=== PATIENT | male | born 1985 | race Caucasian/White ===

== ENCOUNTER 2025-03-31 22:35 | Emergency (ER) | payer OTHER ==
[2025-03-31 22:41] VITALS: RESP 20; BMI 23.6
[2025-03-31] MEDS ORDERED: levETIRAcetam 500 MG/5 ML INJECTION VIAL IVPB ONE (22:55)
[2025-03-31] MEDS: levETIRAcetam 500 MG/5 ML INJECTION VIAL IVPB ONE (23:12)
[2025-03-31 23:17] LABS: ABSOLUTE IMMATURE GRANULOCYTES 0.03 x10^3/uL (0.0-0.031); BASOPHILS # 0.06 x10^3/uL (0.01-0.08); EOSINOPHIL % 0.2 % (0.8-7.0); EOSINOPHILS # 0.02 x10^3/uL (0.04-0.54); MCHC 33.2 g/dl (32.3-36.5); MEAN CELL VOLUME 85.2 fl (79.0-92.2); MEAN PLT VOLUME 9.7 fl (9.4-12.4); MONOCYTE # 0.57 x10^3/uL (0.30-0.82); MONOCYTE % 4.4 % (5.3-12.2); RDW 12.5 % (12.0-15.6)
[2025-03-31 23:37] LABS: GLUCOSE,RANDOM 159 mg/dL (74-106); TOT PROT 8.8 g/dl (6.4-8.2)
[2025-03-31 23:38] LABS: CO2 26 mmol/L (21-32)
[2025-03-31 23:40] LABS: ALK PHOS 72 U/L (40-150)
[2025-03-31 23:42] LABS: LACTIC ACID 3.0 mmol/L (0.4-2.0)
[2025-03-31 23:43] LABS: CREATININE 1.09 mg/dL (0.55-1.3); SGOT/AST 21 U/L (5-34); SGPT/ALT 10 U/L (0-55)
[2025-03-31] MEDS ORDERED: ACETAMINOPHEN INJECTION 100 ML ONE (23:57)
[2025-04-01] MEDS: ACETAMINOPHEN 1000 MG/100 ML BAG IVPB ONE (00:05)
[2025-04-01 00:11] LABS: HCV DIAGNOSTIC IN-HOUSE W/RFLX NON-REACTIVE (NONREACTIVE)
[2025-04-01] MEDS: SODIUM CHLORIDE 1,000 ML IV STA (00:11)
[2025-04-01 00:12] LABS: HIV INTERPRETATION NEGATIVE (NEGATIVE)
[2025-04-01 00:44] LABS: URINE APPEARANCE CLEAR; URINE BILIRUBIN NEGATIVE (NEGATIVE); URINE COLOR YELLOW; URINE GLUCOSE (UA) NEGATIVE (NEGATIVE); URINE KETONE TRACE (NEGATIVE); URINE LEUK ESTERASE NEGATIVE (NEGATIVE); URINE NITRITE NEGATIVE (NEGATIVE); URINE PROTEIN TRACE (NEGATIVE); URINE UROBILINOGEN 1.0 mg/dL (0.2-1.0)
[2025-04-01 00:54] LABS: COCAINE, UR POSITIVE (NEGATIVE); PHENCYCLIDINE,URINE NEGATIVE (NEGATIVE)
[2025-04-01 00:55] LABS: METHADONE, UR NEGATIVE (NEGATIVE); OPIATES, URI POSITIVE (NEGATIVE); URINE AMPHETAMINES NEGATIVE (NEGATIVE); URINE BARBITURATES NEGATIVE (NEGATIVE); URINE BENZODIAZEPINES NEGATIVE (NEGATIVE)
[2025-04-01 02:49] VITALS: BP 114/64; PULSE 87; TEMP 97.9
== END 2025-04-01 03:27 | disposition home or self-care (01) ==
LOC: JER 22:35
PROC: 0HQ1XZZ Repair Face Skin, External Approach (ICD-10-PCS; principal; 2025-03-31)
PROC: 3E033GC Introduction of Other Therapeutic Substance into Peripheral Vein, Percutaneous Approach (ICD-10-PCS; 2025-03-31)
PROC: 3E033GC Introduction of Other Therapeutic Substance into Peripheral Vein, Percutaneous Approach (ICD-10-PCS; 2025-03-31)
PROC: 3E033NZ Introduction of Analgesics, Hypnotics, Sedatives into Peripheral Vein, Percutaneous Approach (ICD-10-PCS; 2025-04-01)
PROC: 3E0337Z Introduction of Electrolytic and Water Balance Substance into Peripheral Vein, Percutaneous Approach (ICD-10-PCS; 2025-04-01)
DX: G40.909 Epilepsy, unspecified, not intractable, without status epilepticus (principal); S01.111A Laceration without foreign body of right eyelid and periocular area, initial encounter; S00.83XA Contusion of other part of head, initial encounter; R00.0 Tachycardia, unspecified; X58.XXXA Exposure to other specified factors, initial encounter
CPT/HCPCS: 36415; 70450-TC; 70486-TC; 72125-TC; 80053; 80307; 81003; 82550; 82962; 83605; 83735; 84100; 84484; 85025; 86803; 87086; 87389; 93005; 93010; 99285-25